=== PATIENT | male | born 1990 | race Caucasian/White ===

== ENCOUNTER 2016-11-18 11:49 | Emergency (ER) | payer MEDICARE, OTHER | END 2016-11-18 14:56 | disposition home or self-care (01) | LOC: ER 11:49 | DX: M24.412 Recurrent dislocation, left shoulder (principal); I10 Essential (primary) hypertension; Z98.84 Bariatric surgery status; Z79.899 Other long term (current) drug therapy | CPT/HCPCS: 23650; 23650-26; 73020; 73030; 96374; 99070; 99283; 99283-25; J1170 ==

== ENCOUNTER 2016-12-29 02:25 | Emergency (ER) | payer MEDICARE, OTHER | END 2016-12-29 03:30 | disposition home or self-care (01) | LOC: ER 02:25 | DX: M24.412 Recurrent dislocation, left shoulder (principal); Z98.84 Bariatric surgery status; Z79.899 Other long term (current) drug therapy; Z88.1 Allergy status to other antibiotic agents | CPT/HCPCS: 23650; 23650-26; 73020; 73030; 96372; 96374; 99283; 99283-25; J1170 ==

== ENCOUNTER 2016-12-30 06:03 | Emergency (ER) | payer MEDICARE, OTHER | END 2016-12-30 07:08 | disposition home or self-care (01) | LOC: ER 06:03 | DX: M24.412 Recurrent dislocation, left shoulder (principal); I10 Essential (primary) hypertension; Z88.1 Allergy status to other antibiotic agents | CPT/HCPCS: 23655; 73020; 96374; 99070; 99283; 99283-25; J1170 ==

== ENCOUNTER 2017-01-02 20:56 | Emergency (ER) | payer MEDICARE, OTHER | END 2017-01-02 21:27 | disposition home or self-care (01) | LOC: ER 20:56 | DX: M24.412 Recurrent dislocation, left shoulder (principal); F17.220 Nicotine dependence, chewing tobacco, uncomplicated; Z79.891 Long term (current) use of opiate analgesic; Z79.899 Other long term (current) drug therapy; Z88.1 Allergy status to other antibiotic agents | CPT/HCPCS: 99283 ==